=== PATIENT | male | born 1955 | race Caucasian/White ===

== ENCOUNTER 2020-12-12 10:16 | Observation (INO) ==
[2020-12-12] MEDS ORDERED: NORCO 10/325 TAB PO PRN (16:21)
[2020-12-12] MEDS ORDERED: AMBIEN PO PRN (16:21)
[2020-12-12] MEDS ORDERED: INFeD or DEXFERRUM 25 MG in NS 100 ML IV 100 ML IV ONE (17:00)
[2020-12-12 17:23] LABS: BASOPHILS # (AUTO) 0.1 X10^3/uL (0.0-0.1); EOSINOPHILS # (AUTO) 0.1 x10^3/uL (0.0-0.2); EOSINOPHILS % (AUTO) 1.7 % (0.9-2.9); HEMATOCRIT 23.3 % (42.0-54.0); HEMOGLOBIN 7.2 g/dL (13.5-18.0); LYMPHOCYTES # (AUTO) 0.7 X10^3/uL (1.3-2.9); LYMPHOCYTES % (AUTO) 11.8 % (21.0-51.0); MEAN CORPUSCULAR HEMOGLOBIN 22.9 pg (27.0-34.0); MEAN CORPUSCULAR HGB CONC 30.8 g/dL (33.0-35.0); MEAN CORPUSCULAR VOLUME 74.3 fL (80.0-100.0); MEAN PLATELET VOLUME 8.9 fL (7.4-11.0); MONOCYTES # (AUTO) 0.6 x10^3/uL (0.3-0.8); MONOCYTES % (AUTO) 9.8 % (0.0-13.0); NEUTROPHILS # (AUTO) 4.5 x10^3/uL (2.2-4.8); NEUTROPHILS % (AUTO) 75.7 % (42.0-75.0); PLATELET COUNT 339 X10^3/uL (150.0-450.0); RED BLOOD COUNT 3.14 X10^6/uL (4.7-6.0)
[2020-12-12] MEDS ORDERED: NS IV ONE (17:30)
[2020-12-12] MEDS ORDERED: INFED OR DEXFERRUM IV ONE (17:30)
[2020-12-12] MEDS: PROTONIX INJ 40 MG VIAL IVP SCH ×2 (17:45→21:49)
[2020-12-12] MEDS: LR 1000 ML IV 1,000 ML IV SCH (17:45)
[2020-12-12] MEDS: CYTOTEC PO SCH ×2 (17:45→21:49)
[2020-12-12 17:51] VITALS: BMI 26.2
[2020-12-12 18:11] LABS: ANISOCYTOSIS 2+; OVALOCYTES SLIGHT; PLATELET MORPHOLOGY COMMENT NORMAL (NORMAL); TEAR DROP CELLS SLIGHT
[2020-12-12] MEDS ORDERED: REQUIP PO SCH (21:00)
[2020-12-13] MEDS: CYTOTEC PO SCH ×2 (05:50→14:52)
[2020-12-13 06:22] LABS: BASOPHILS % (AUTO) 1.1 % (0.2-1.0); EOSINOPHILS # (AUTO) 0.2 x10^3/uL (0.0-0.2); EOSINOPHILS % (AUTO) 4.9 % (0.9-2.9); HEMATOCRIT 24.6 % (42.0-54.0); HEMOGLOBIN 7.9 g/dL (13.5-18.0); LYMPHOCYTES # (AUTO) 0.9 X10^3/uL (1.3-2.9); LYMPHOCYTES % (AUTO) 21.4 % (21.0-51.0); MEAN CORPUSCULAR HEMOGLOBIN 24.3 pg (27.0-34.0); MEAN CORPUSCULAR HGB CONC 32.2 g/dL (33.0-35.0); MEAN CORPUSCULAR VOLUME 75.6 fL (80.0-100.0); MEAN PLATELET VOLUME 9.1 fL (7.4-11.0); MONOCYTES # (AUTO) 0.5 x10^3/uL (0.3-0.8); MONOCYTES % (AUTO) 12.2 % (0.0-13.0); NEUTROPHILS # (AUTO) 2.4 x10^3/uL (2.2-4.8); NEUTROPHILS % (AUTO) 60.4 % (42.0-75.0); PLATELET COUNT 288 X10^3/uL (150.0-450.0); RED BLOOD COUNT 3.26 X10^6/uL (4.7-6.0); RED CELL DISTRIBUTION WIDTH 21.1 % (11.6-16.5)
[2020-12-13 06:37] LABS: ALBUMIN 3.1 g/dL (3.4-5.0); CALCIUM 8.2 mg/dL (8.5-10.1); COR CA(FOR HYPOALB) 8.9 mg/dL (8.5-10.1); CREATININE 1.69 mg/dL (0.70-1.30); TOTAL PROTEIN 6.5 g/dL (6.4-8.2)
[2020-12-13 07:18] LABS: ANISOCYTOSIS 1+; PLATELET MORPHOLOGY COMMENT NORMAL (NORMAL)
[2020-12-13 07:19] LABS: OVALOCYTES SLIGHT; TEAR DROP CELLS SLIGHT
[2020-12-13] MEDS ORDERED: TOPROL XL PO SCH (09:00)
[2020-12-13] MEDS: LR 1000 ML IV 1,000 ML IV SCH (09:51)
[2020-12-13] MEDS ORDERED: TOPROL XL PO ONE (10:16)
[2020-12-13] MEDS ORDERED: DIPRIVAN VIAL 20 ML ONE (10:29)
[2020-12-13] MEDS ORDERED: NS 1000 ML 1,000 ML ONE (10:30)
[2020-12-13] MEDS: PROTONIX INJ 40 MG VIAL IVP SCH (10:59)
[2020-12-13 17:42] VITALS: BP 121/78
[2020-12-13 17:56] LABS: HEMATOCRIT 28.9 % (42.0-54.0); HEMOGLOBIN 9.4 g/dL (13.5-18.0)
== END 2020-12-13 18:51 | disposition home or self-care (01) ==
LOC: OBS → MED/SURG 16:18
PROVIDERS: ADMIT Obstetrics & Gynecology Obstetrics; ATTEND Obstetrics & Gynecology Obstetrics
DX: Z20.822 Contact with and (suspected) exposure to COVID-19; D62 Acute posthemorrhagic anemia; K22.4 Dyskinesia of esophagus; K29.60 Other gastritis without bleeding